=== PATIENT | male | born 1970 | race Caucasian/White ===

== ENCOUNTER 2024-06-14 15:26 | Emergency (ER) | payer OTHER ==
[~2024-06-14] VITALS: Ht 177.8 cm; Wt 84.1 kg
[2024-06-14] MEDS ORDERED: HYDR25SU48 RC (18:00)
[2024-06-14] MEDS ORDERED: HYDR30CR79 TOP (18:00)
[2024-06-14 18:10] VITALS: BP 130/78; PULSE 85; RESP 18; TEMP 97.6; O2SAT 99
== END 2024-06-14 18:15 | disposition home or self-care (01) ==
LOC: ER 15:27
DX: K64.9 Unspecified hemorrhoids (principal); Z88.0 Allergy status to penicillin
CPT/HCPCS: 99283